=== PATIENT | male | born 1970 | race Two or more races ===

== ENCOUNTER 2023-12-17 17:32 | Inpatient (IN) | payer OTHER ==
[~2023-12-17] VITALS: Ht 177.8 cm; Wt 85.5 kg
[2023-12-17 19:18] LABS: Eosinophils # (auto) 0 10 ^3/uL (0-0.8); Monocytes # (auto) 0.7 10 ^3/uL (0-1.3)
[2023-12-17 19:20] LABS: Basophils # (auto) 0.1 10 ^3/uL (0-0.2); Basophils % (auto) 1.3 % (0.0-2.0); Eosinophils % (auto) 0.3 % (0.0-7.0); Hematocrit 37.3 % (41.0-53.0); Lymphocytes # (auto) 2.1 10 ^3/uL (0.4-5.4); Lymphocytes % (auto) 45.1 % (10.0-50.0); Mean Corpuscular Hemoglobin 36.7 pg (28.0-32.0); Mean Corpuscular Hgb Conc. 34.9 g/dL (32.0-36.0); Mean Corpuscular Volume 105.1 fL (80.0-100.0); Monocytes % (auto) 14.7 % (0.0-12.0); Neutrophils # (auto) 1.8 10 ^3/uL (1.6-8.6); Neutrophils % (auto) 38.6 % (37.0-80.0); Nucleated Red Blood Cells % 0.3 %; Platelet Count (auto) 82 10^3/uL (140-450); Red Blood Cells 3.55 10^6/uL (4.5-5.90); Red Cell Distribution Width 15.3 % (11.8-14.3); White Blood Cell 4.6 10^3/uL (4.4-10.8)
[2023-12-17 19:42] LABS: Alanine Aminotransferase 37 U/L (7-40); Alkaline Phosphatase 133 U/L (46-116); Anion Gap 11 (5-15); Aspartate Aminotransferase 138 U/L (13-40); Bilirubin, Total 2.8 mg/dL (0.2-1.0); Blood Urea Nitrogen 9 mg/dL (9-23); Calcium 8.5 mg/dL (8.7-10.4); Carbon Dioxide 25 mmol/L (20-31); Chloride 114 mmol/L (98-107); Glucose 86 mg/dL (74-106); Potassium 3.7 mmol/L (3.5-5.1); Sodium 150 mmol/L (136-145); Total Protein 6.2 g/dL (5.7-8.2)
[2023-12-17] MEDS: SODIUM CHLORIDE 0.9% 1,000 ML IVB ONE (19:43)
[2023-12-17 19:49] VITALS: PULSE 86; RESP 18; O2SAT 97
[2023-12-17 19:49] LABS: Blood Alcohol 328.1 mg/dL (<10)
[2023-12-17 22:39] LABS: Platelet Estimate Decreased
[2023-12-17] MEDS ORDERED: ONDANSETRON HCL 4 MG/2 ML VIAL IV PRN (23:15)
[2023-12-17] MEDS ORDERED: TEMAZEPAM 15 MG CAP PO PRN (23:15)
[2023-12-18] MEDS: chlordiazePOXIDE HCL 25 MG CAP PO SCH ×2 (01:03→10:16)
[2023-12-18 05:20] LABS: Chloride 113 mmol/L (98-107); Potassium 3.3 mmol/L (3.5-5.1); Sodium 147 mmol/L (136-145)
[2023-12-18 05:21] LABS: Anion Gap 9 (5-15); Calcium 8.5 mg/dL (8.7-10.4); Carbon Dioxide 25 mmol/L (20-31)
[2023-12-18 05:26] LABS: BUN/Creatinine Ratio 10.8 (10.0-20.0); Blood Urea Nitrogen 9 mg/dL (9-23); Glucose 109 mg/dL (74-106)
[2023-12-18] MEDS: LACTULOSE 20Gm/30ML SOLN PO SCH (06:52)
[2023-12-18 07:30] VITALS: PULSE 75; RESP 16; O2SAT 5; O2SAT 95
[2023-12-18] MEDS: FOLIC ACID 1 MG TAB PO SCH (10:15)
[2023-12-18] MEDS: THIAMINE HCL 100 MG TAB PO SCH (10:15)
[2023-12-18] MEDS: FOLIC ACID 1 MG, MULTIPLE VITAMIN 10 ML, MAGNESIUM SULF SDV 50% 8 MEQ, THIAMINE INJ 100... INJ SCH (19:07)
[2023-12-18 19:30] VITALS: PULSE 73; RESP 13; O2SAT 96
[2023-12-18 22:20] LABS: Urine Bacteria None Seen /hpf (None Seen)
[2023-12-18 22:33] LABS: Urine Blood Negative /uL (Negative); Urine Clarity Clear (Clear); Urine Color Light-Yellow (Yellow); Urine Protein, UAD Negative (Negative); Urine Specific Gravity 1.003 (1.001-1.035); Urine Urobilinogen 2 mg/dL (Negative); Urine WBC <1 /hpf (0 - 3)
[2023-12-18 22:39] LABS: Amphetamine Screen, Urine Neg (NEGATIVE); Barbiturate Scree,Urine Neg (NEGATIVE); Benzodiazephine Screen, Urine Neg (NEGATIVE); Cannabinoid Screen, Urine Neg (NEGATIVE); Cocaine Screen, Urine Neg (NEGATIVE); Opiate Scree,Urine Neg (NEGATIVE); Phencyclidine Screen, Urine Neg (NEGATIVE)
[2023-12-19 05:00] VITALS: BP 133/72; PULSE 75; RESP 19; TEMP 97.8; O2SAT 98
[2023-12-19 09:11] VITALS: BP 145/73; PULSE 71; RESP 20; TEMP 99; O2SAT 94
[2023-12-19] MEDS: POTASSIUM CHLORIDE 40 MEQ in D5W/LACTATED RINGERS 1,000 ML IV SCH (10:00)
[2023-12-19] MEDS: chlordiazePOXIDE HCL 25 MG CAP PO SCH (10:54)
[2023-12-19 13:19] VITALS: BP 142/92; PULSE 77; RESP 20; TEMP 98.1; O2SAT 95
[2023-12-19 17:39] VITALS: BP 146/91; PULSE 81; RESP 20; TEMP 98.1; O2SAT 94
[2023-12-19 21:00] VITALS: BP 139/86; PULSE 77; RESP 20; TEMP 98.2; O2SAT 95
[2023-12-20 01:00] VITALS: BP 137/86; PULSE 68; RESP 20; TEMP 98; O2SAT 96
[2023-12-20 05:02] VITALS: BP 140/80; PULSE 71; RESP 20; TEMP 98; O2SAT 96
[2023-12-20] MEDS: chlordiazePOXIDE HCL 25 MG CAP PO SCH (05:53)
[2023-12-20 08:08] LABS: White Blood Cell 4.2 10^3/uL (4.4-10.8)
[2023-12-20 08:11] LABS: Hematocrit 39.7 % (41.0-53.0); Mean Corpuscular Hemoglobin 37.6 pg (28.0-32.0); Mean Corpuscular Hgb Conc. 35.3 g/dL (32.0-36.0); Mean Corpuscular Volume 106.5 fL (80.0-100.0); Platelet Count (auto) 79 10^3/uL (140-450); Red Blood Cells 3.73 10^6/uL (4.5-5.90)
[2023-12-20 08:19] LABS: Band Neutrophils % (manual) 0; Basophils % (manual) 0 (0.0-2.0); Blast Cells 0; Eosinophils % (manual) 0 (0-7); Metamyelocytes % 0; Monocytes % (manual) 0 (0-12); Myelocytes % 0; Promyelocytes % 0; Reactive Lymphocytes 0
[2023-12-20 08:22] LABS: Anion Gap 5 (5-15); Carbon Dioxide 26 mmol/L (20-31); Chloride 111 mmol/L (98-107); Potassium 3.7 mmol/L (3.5-5.1); Sodium 142 mmol/L (136-145)
[2023-12-20 08:24] VITALS: BP 147/87; PULSE 65; RESP 20; TEMP 98.1; O2SAT 97
[2023-12-20 08:24] LABS: Calcium 8.7 mg/dL (8.7-10.4)
[2023-12-20 08:28] LABS: Glucose 91 mg/dL (74-106)
[2023-12-20 09:07] LABS: Lymphocytes % (manual) 63 (10.0-50.0); Platelet Estimate Decreased
[2023-12-20 12:02] LABS: BUN/Creatinine Ratio 7.6 (10.0-20.0); Blood Urea Nitrogen 5 mg/dL (9-23)
[2023-12-20 12:55] VITALS: BP 136/82; PULSE 71; RESP 20; TEMP 97.9; O2SAT 95
[2023-12-20 17:00] VITALS: BP 137/78; PULSE 89; RESP 16; TEMP 98; O2SAT 96
[2023-12-20 21:00] VITALS: BP 123/80; PULSE 91; RESP 19; TEMP 98.9; O2SAT 94
[2023-12-21 01:00] VITALS: BP 133/79; PULSE 77; RESP 17; TEMP 98.3; O2SAT 97
[2023-12-21 05:00] VITALS: BP 126/84; PULSE 79; RESP 18; TEMP 97.7; O2SAT 95
[2023-12-21 08:42] VITALS: BP 122/71; PULSE 78; RESP 16; TEMP 98.2; O2SAT 96
[2023-12-21 13:30] VITALS: BP 131/79; PULSE 72; RESP 16; TEMP 98.4; O2SAT 97
[2023-12-21 17:00] VITALS: BP 133/80; PULSE 74; RESP 16; TEMP 98.5; O2SAT 98
[2023-12-21 21:00] VITALS: BP 144/91; PULSE 82; RESP 19; TEMP 98.2; O2SAT 94
[2023-12-22] VITALS (7 sets, daily range): BP systolic 114–126; BP diastolic 64–75; PULSE 75–95; RESP 17–18; TEMP 97.4–98.8; O2SAT 74–97
[2023-12-23] VITALS (9 sets, daily range): BP systolic 101–123; BP diastolic 55–73; PULSE 59–87; RESP 16–19; TEMP 97.9–98.9; O2SAT 95–98
[2023-12-24 05:00] VITALS: BP 120/69; PULSE 61; RESP 18; TEMP 98; O2SAT 96
[2023-12-24 08:00] VITALS: PULSE 62; RESP 14; O2SAT 96
[2023-12-24 09:00] VITALS: BP 122/73; PULSE 62; RESP 14; TEMP 98.5; O2SAT 96
[2023-12-24 13:00] VITALS: BP 117/71; PULSE 85; RESP 16; TEMP 98; O2SAT 98
[2023-12-24 17:00] VITALS: BP 114/59; PULSE 67; RESP 16; TEMP 97.8; O2SAT 98
[2023-12-24 21:00] VITALS: BP 114/59; PULSE 68; RESP 20; TEMP 98.7; O2SAT 97
[2023-12-25 01:00] VITALS: BP 109/63; PULSE 68; RESP 18; TEMP 98; O2SAT 96
[2023-12-25 05:00] VITALS: BP 105/61; PULSE 56; RESP 20; TEMP 97.9; O2SAT 93
[2023-12-25 08:00] VITALS: PULSE 59; RESP 17; O2SAT 98
[2023-12-25] MEDS ORDERED: FOLI-119 PO (08:04)
[2023-12-25] MEDS ORDERED: THIA100T10 PO (08:04)
[2023-12-25] MEDS ORDERED: LACT10SO3 PO (08:04)
[2023-12-25 13:14] VITALS: BP 125/74; PULSE 59; RESP 17; TEMP 98; O2SAT 98
== END 2023-12-25 14:43 | disposition home or self-care (01) | DRG 280 ==
LOC: ER 17:43 → EDBD 17:43 → OVERFLOW 23:02 → CENTRAL 12-19 04:28
PROVIDERS: ADMIT Nurse Practitioner; ATTEND Student in an Organized Health Care Education/Training Program
DX: K76.82 Hepatic encephalopathy (principal); K70.30 Alcoholic cirrhosis of liver without ascites; G93.41 Metabolic encephalopathy; D53.1 Other megaloblastic anemias, not elsewhere classified; E51.2 Wernicke's encephalopathy; E87.0 Hyperosmolality and hypernatremia; T51.91XA Toxic effect of unspecified alcohol, accidental (unintentional), initial encounter; Y90.8 Blood alcohol level of 240 mg/100 ml or more; F10.129 Alcohol abuse with intoxication, unspecified; R74.01 Elevation of levels of liver transaminase levels; E87.6 Hypokalemia; R26.89 Other abnormalities of gait and mobility; Z59.00 Homelessness unspecified; Z86.73 Personal history of transient ischemic attack (TIA), and cerebral infarction without residual deficits
CPT/HCPCS: 36415; 70450; 80048; 80053; 80307; 80320; 81001; 82140; 82746; 85007; 85025; 85027; 97110; 97116; 97163; 97530; 99291; G0378